=== PATIENT | female | born 1960 | race Caucasian/White ===

== ENCOUNTER → 2017-09-25 | Outpatient (CLI) | payer MEDICARE, MEDICAID ==
[~2017-09-25] MED LIST: AC500T PO; HYDR1TAB PO; LISI10TA2 PO; LISI20TA PO; LORA10TA7 PO
--- NOTE | 2017-09-25 11:29 | Diagnostic Imaging Report ---
INDICATION: Routine screening. COMPARISON: 07/15/2014 and 02/03/2013. TECHNIQUE: Screening digital mammography was performed bilaterally with a Computer Aided Detection (CAD) system. FINDINGS: Moderate density is noted bilaterally. The parenchymal pattern is stable. The bilateral breast nodules appear stable, consistent with benign etiologies. No spiculated mass or malignant appearing microcalcifications are seen. The axillae are unremarkable. IMPRESSION: No mammographic features suspicious for malignancy are identified. ACR BI-RADS Category 2: Benign findings. Result letter will be mailed to the patient. Note: At least 10% of breast cancer is not imaged by mammography. Dictated by: Dictated on workstation # [id number]
== END ==
LOC: RAD 08:05
PROVIDERS: ATTEND Family Medicine
DX: Z12.31 Encounter for screening mammogram for malignant neoplasm of breast (principal)
CPT/HCPCS: 77067

== ENCOUNTER 2018-05-09 15:52 | Outpatient (CLI) | payer MEDICARE, MEDICAID ==
[~2018-05-09] VITALS: Ht 157.5 cm; Wt 83.9 kg
== END 2018-05-09 16:06 | disposition home or self-care (01) ==
LOC: PREOP 15:52
PROVIDERS: ATTEND Surgery
DX: Z01.818 Encounter for other preprocedural examination (principal)

== ENCOUNTER 2018-05-13 08:06 | Day surgery (SDC) | payer MEDICARE, MEDICAID ==
[~2018-05-13] VITALS: Ht 157.5 cm; Wt 83.9 kg
[2018-05-13] MEDS ORDERED: LACTATED RINGERS 1,000 ML IV STA (08:17)
[2018-05-13 08:29] VITALS: BP 165/82
--- OUTSIDE RECORDS SUMMARY | 2018-05-13 08:37 | XMS REPORT ---
Author Author LUISA SARMIENTO [facility] Address [address] [place] [address] Phone Unavailable Care Team Providers Care Fuel Agent Name Role Phone LUISA SARMIENTO Unavailable Unavailable PROBLEMS Unknown Problems ALLERGIES No Known Allergies ENCOUNTERS Encounter Location Date Diagnosis [facility] [id number] [place] [address] [phone] Apr, Dental examination Z01.20 [facility] [address] [id number] Dec, Dental examination Z01.20 [facility] [address] [id number] Sep, Dental examination Z01.20 [facility] [id number] [place] [address] [phone] Sep, Encounter for dental exam and cleaning w/o abnormal findings Z01.20 [facility] [id number] [place] [address] [phone] May, Encounter for dental examination and cleaning without abnormal findings Z01.20 [facility] [id number] [place] [address] [phone] Jan, [facility] for dental examination and cleaning without abnormal findings [facility] [address] [id number] [phone] Jan, Dental examination Z01.20 [facility] [id number] [place] [address] [phone] Oct, Encounter for dental examination and cleaning without abnormal findings Z01.20 [facility] [address] [facility] [id number] [place] [address] [id number] Aug, Encounter for dental examination and cleaning without abnormal findings [facility]01.[facility] [address] [id number] [phone] Aug, Dental examination Z01.20 [facility] [address] [id number] [place] [phone] Apr, Encounter for dental examination and cleaning without abnormal findings [facility] [address] [id number] [place] [phone] Dec, Dental examination Z01.20 [facility] [address] [facility] [id number][place] [phone] Dec, Encounter for dental examination and cleaning with abnormal findings Z01.21 [facility] [address] [facility] [id number], [place] [phone] Mar, Dental examination V72.2 [facility] [address] [facility] [id number], [place] [address] Apr, IMMUNIZATIONS No Known Immunizations SOCIAL HISTORY Never Assessed REASON FOR VISIT PLAN OF CARE Activity Details Follow Up prn Reason: VITAL SIGNS MEDICATIONS Medication Instructions Dosage Frequency Start Date End Date Duration Status Lotrisone 1-0.05 % Externally Twice a day 1 application to affected area 12h Not-Taking ibuprofen 1 tab Active Lisinopril 10 MG Orally Once a day 1 tablet 24h Active Clotrimazole Active Zofran 4 MG Orally Once a day 2 tablets 24h Not-Taking Loratadine 10 MG Orally Once a day 1 tablet 24h Active Acetaminophen 325 MG Orally every 6 hrs 2 tablets as needed 6h Active Claritin 10 MG Orally Once a day 1 tablet 24h Not-Taking RESULTS No Results PROCEDURES Procedure Date Ordered Result Body Site PROPHYLAXIS - ADULT December 18, 2017 TOPICAL FLUORIDE VARNISH December 18, 2017 INSTRUCTIONS MEDICATIONS ADMINISTERED No Known Medications
--- OUTSIDE RECORDS SUMMARY | 2018-05-13 08:37 | XMS REPORT ---
Author Author [facility]ORRES [facility] Address [address] [place] [address] Care Team Providers Care Global Compensation Manager Name Role Phone MARANDA TORRES Unavailable PROBLEMS Unknown Problems ALLERGIES Unknown Allergies SOCIAL HISTORY No smoking Hx information available PLAN OF CARE VITAL SIGNS MEDICATIONS Medication Instructions Dosage Frequency Start Date End Date Duration Status Lisinopril 10 MG Orally Once a day 1 tablet 24h Active Claritin 10 MG Orally Once a day 1 tablet 24h Active Loratadine 10 MG Orally Once a day 1 tablet 24h Active Acetaminophen 325 MG Orally every 6 hrs 2 tablets as needed 6h Active RESULTS No Results PROCEDURES Procedure Date Ordered Related Diagnosis Body Site PERIODIC ORAL EXAMINATION Aug 08, 2016 BITEWINGS - FOUR FILMS Aug 08, 2016 IMMUNIZATIONS No Known Immunizations
--- OUTSIDE RECORDS SUMMARY | 2018-05-13 08:37 | XMS REPORT ---
Author Author LUISA SARMIENTO [facility] Address [address] [place] [address] Phone Unavailable Care Team Providers Care Continuing Education Specialist Name Role Phone LUISA SARMIENTO Unavailable Unavailable PROBLEMS Unknown Problems ALLERGIES No Known Allergies ENCOUNTERS Encounter Location Date Diagnosis [facility] [id number] [place] [address] [phone] Dec, Dental examination Z01.20 [facility] [address] [phone] Sep, Dental examination Z01.20 [facility] [id number] [place] [address] [phone] Sep, Encounter for dental exam and cleaning w/o abnormal findings Z01.20 [facility] [id number] [place] [address] [phone] May, Encounter for dental examination and cleaning without abnormal findings Z01.20 [facility] [address] [id number] [place] [address] [phone] Jan, Encounter for dental examination and cleaning without abnormal findings [facility]01.20 [facility] [address] [facility] [address] [address] [id number] [phone] Jan, Dental examination Z01.20 [facility] [id number] [place] [address] [phone] Oct, Encounter for dental examination and cleaning without abnormal findings Z01.20 [facility] [address] [id number] [place] [address] [phone] Aug, Encounter for dental examination and cleaning without abnormal findings Z01.20 [facility] [address] [id number] [phone] Aug, Dental examination Z01.20 [facility] [id number] [place] [address] [phone] Apr, Encounter for dental examination and cleaning without abnormal findings Z01.20 [facility] [address] [id number] [place] [phone] Dec, Dental examination Z01.20 [facility] [address] [facility] [id number] [place] [phone] Dec, Encounter for dental examination and cleaning with abnormal findings Z01.21 [facility] [address] [facility] [id number] [place] [phone] Mar, Dental examination V72.2 [facility] [address] [facility] [id number] [place] [address] Apr, IMMUNIZATIONS No Known Immunizations SOCIAL HISTORY Never Assessed REASON FOR VISIT ADULT OUTREACH CLASS [facility] PLAN OF CARE Activity Details Follow Up 3 Months Reason:ON SITE RECALL VITAL SIGNS MEDICATIONS Medication Instructions Dosage Frequency Start Date End Date Duration Status Lotrisone 1-0.05 % Externally Twice a day 1 application to affected area 12h Unknown Zofran 4 MG Orally Once a day 2 tablets 24h Unknown Claritin 10 MG Orally Once a day 1 tablet 24h Unknown Loratadine 10 MG Orally Once a day 1 tablet 24h Unknown Lisinopril 10 MG Orally Once a day 1 tablet 24h Unknown ibuprofen 1 tab Unknown Acetaminophen 325 MG Orally every 6 hrs 2 tablets as needed 6h Unknown RESULTS No Results PROCEDURES Procedure Date Ordered Result Body Site PROPHYLAXIS - ADULT Sep 04, 2017 TOPICAL FLUORIDE VARNISH Sep 04, 2017 INSTRUCTIONS MEDICATIONS ADMINISTERED No Known Medications
--- OUTSIDE RECORDS SUMMARY | 2018-05-13 08:37 | XMS REPORT ---
Author Author MARANDA TORRES Organization [employer] Address Unknown Phone Unavailable Care Team Providers Care Crm Analyst Name Role Phone MARANDA TORRES CP Unavailable Allergies No Known Allergies Problems Problem Type Condition Code Onset Dates Condition Status Assessment Dental examination Z01.20 Active Medications No Known Medications Procedures Procedure Coding System Code Date INTRAORL-PERIAPICAL 1 FILM 13009 CPT-4 D0220 December 28, 2015 INTRAORL-PERIAPICAL EA ADD FILM CPT-4 D0230 December 28, 2015 COMP ORAL EVALUATION - NEW/EST PT CPT-4 D0150 December 28, 2015 INTRAORL-PERIAPICAL EA ADD FILM CPT-4 D0230 December 28, 2015 INTRAORL-PERIAPICAL EA ADD FILM CPT-4 D0230 December 28, 2015 INTRAORL-PERIAPICAL EA ADD FILM CPT-4 D0230 December 28, 2015 Results No Known Results Summary Purpose eClinicalWorks Submission
--- OUTSIDE RECORDS SUMMARY | 2018-05-13 08:37 | XMS REPORT ---
Author Author MARANDA TORRES Organization [facility] Address [address] [place] [address] Care Team Providers Care Vending Route Driver Name Role Phone MARANDA TORRES Unavailable PROBLEMS Unknown Problems ALLERGIES No Known Allergies ENCOUNTERS Encounter Location Date Diagnosis [facility] [id number] [place] [phone] Dec, [facility] [id number] [place] [address] [phone] Sep, Dental examination Z01.[address] [facility] [id number] [place] [address] [phone] Sep, Encounter for dental exam and cleaning w/o abnormal findings Z01.[address] [facility] [address] [id number] [place] [address] [phone] May, Encounter for dental examination and cleaning without abnormal findings Z01.[address] [facility] [address] [id number] [place] [address] [phone] Jan, Encounter for dental examination and cleaning without abnormal findings Z01.20 [facility] [address] [facility] [address] [id number] [place] [phone] Jan, Dental examination Z01.[address] [facility] [address] [id number] [place] [address] [phone] Oct, Encounter for dental examination and cleaning without abnormal findings Z01.[address] [facility] [id number] [place] [address] [phone] Aug, Encounter for dental examination and cleaning without abnormal findings Z01.20 [facility] [address] [facility] [id number] [place] [phone] Aug, Dental examination Z01.[address] [facility] [address] [facility] [id number] [place] [phone] Apr, Encounter for dental examination and cleaning without abnormal findings Z01.20 [facility] [address] [id number] [place] [phone] Dec, Dental examination Z01.[address] [facility] [address] [facility] [id number][place] [phone] Dec, Encounter for dental examination and cleaning with abnormal findings Z01.[address] [facility] [address] [facility] [id number] [place] [phone] Mar, Dental examination V72.2 [facility] [address] [facility] [id number], [place] [address] Apr, IMMUNIZATIONS No Known Immunizations SOCIAL HISTORY Never Assessed REASON FOR VISIT PLAN OF CARE Activity Details Follow Up prn Reason:Recall VITAL SIGNS MEDICATIONS Medication Instructions Dosage Frequency Start Date End Date Duration Status Claritin 10 MG Orally Once a day 1 tablet 24h Active Loratadine 10 MG Orally Once a day 1 tablet 24h Active Zofran 4 MG Orally Once a day 2 tablets 24h Active Lotrisone 1-0.05 % Externally Twice a day 1 application to affected area 12h Active ibuprofen 1 tab Active Lisinopril 10 MG Orally Once a day 1 tablet 24h Active Acetaminophen 325 MG Orally every 6 hrs 2 tablets as needed 6h Active RESULTS No Results PROCEDURES Procedure Date Ordered Result Body Site PERIODIC ORAL EXAMINATION February 26, 2017 INTRAORL-PERIAPICAL 1 FILM 64963 February 26, 2017 INTRAORL-PERIAPICAL EA ADD FILM February 26, 2017 INTRAORL-PERIAPICAL EA ADD FILM February 26, 2017 INTRAORL-PERIAPICAL EA ADD FILM February 26, 2017 INTRAORL-PERIAPICAL EA ADD FILM February 26, 2017 INSTRUCTIONS MEDICATIONS ADMINISTERED No Known Medications
--- OUTSIDE RECORDS SUMMARY | 2018-05-13 08:37 | XMS REPORT ---
Author Author LUISA SARMIENTO [facility] Address [address] [place] [address] Phone Unavailable Care Team Providers Care Evp Sales Name Role Phone LUISA SARMIENTO Unavailable Unavailable PROBLEMS Unknown Problems ALLERGIES No Known Allergies ENCOUNTERS Encounter Location Date Diagnosis [facility] [id number] [place] [address] [phone] Dec, Dental examination Z01.20 [facility] [address] [phone] Sep, Dental examination Z01.20 [facility] [address] [phone] Sep, Encounter for dental exam and cleaning w/o abnormal findings Z01.20 [facility] [id number] [place] [address] [phone] May, Encounter for dental examination and cleaning without abnormal findings Z01.20 [facility] [address] [id number] [phone] Jan, Dental examination Z01.20 [facility] [id number] [place] [address] [phone] Jan, Encounter for dental examination and cleaning without abnormal findings Z01.20 [facility] [id number] [place] [address] [id number] Oct, Encounter for dental examination and cleaning without abnormal findings Z01.20 [facility] [address] [id number] [place] [address] [phone] Aug, Encounter for dental examination and cleaning without abnormal findings [facility]01.20 [facility] [address] [id number] [phone] Aug, Dental examination Z01.20 [facility] [id number] [place] [address] [id number] Apr, Encounter for dental examination and cleaning without abnormal findings Z01.20 [facility] [address] [id number] [place] [phone] Dec, Dental examination Z01.20 [facility] [address] [facility] [id number] [place] [phone] Dec, Encounter for dental examination and cleaning with abnormal findings Z01.21 [facility] [address] [facility] [id number] [place] [phone] Mar, Dental examination V72.2 [facility] [address] [facility] [id number] [place] [address] Apr, IMMUNIZATIONS No Known Immunizations SOCIAL HISTORY Never Assessed REASON FOR VISIT ADULT OUTREACH CLASS [facility] PLAN OF CARE Activity Details Follow Up 3 Months Reason:ON SITE RECALL VITAL SIGNS MEDICATIONS Medication Instructions Dosage Frequency Start Date End Date Duration Status Lotrisone 1-0.05 % Externally Twice a day 1 application to affected area 12h Active Zofran 4 MG Orally Once a day 2 tablets 24h Active Acetaminophen 325 MG Orally every 6 hrs 2 tablets as needed 6h Active Lisinopril 10 MG Orally Once a day 1 tablet 24h Active Loratadine 10 MG Orally Once a day 1 tablet 24h Active Claritin 10 MG Orally Once a day 1 tablet 24h Active ibuprofen 1 tab Active RESULTS No Results PROCEDURES Procedure Date Ordered Result Body Site PROPHYLAXIS - ADULT May 08, 2017 TOPICAL FLUORIDE VARNISH May 08, 2017 INSTRUCTIONS MEDICATIONS ADMINISTERED No Known Medications
--- OUTSIDE RECORDS SUMMARY | 2018-05-13 08:37 | XMS REPORT ---
Author Author nicolleRADHAMES Bejarano Organization [facility] Address [address] [place] [address] Care Team Providers Care Executive Director Of Marketing Name Role Phone RADHAMES Zaidi Unavailable PROBLEMS Unknown Problems ALLERGIES No Known Allergies ENCOUNTERS Encounter Location Date Diagnosis [facility] [id number] [place] [address] [phone] Dec, Dental examination Z01.20 [facility] [id number] [place] [address] [phone] Sep, Dental examination Z01.20 [facility] [address] [phone] Sep, Encounter for dental exam and cleaning w/o abnormal findings Z01.20 [facility] [id number] [place] [address] [phone] May, Encounter for dental examination and cleaning without abnormal findings Z01.20 [facility] [address] [id number] [phone] Jan, Dental examination Z01.20 [facility] [id number] [place] [address] [phone] Jan, Encounter for dental examination and cleaning without abnormal findings Z01.20 [facility] [id number] [place] [address] [phone] Oct, Encounter for dental examination and cleaning without abnormal findings Z01.20 [facility] [id number] [place] [address] [phone] Aug, Encounter for dental examination and cleaning without abnormal findings [facility]01.[address] [facility] [address] [id number], [place] [phone] Aug, Dental examination Z01.20 [facility] [address] [id number] [place] [phone] Apr, Encounter for dental examination and cleaning without abnormal findings Z01.20 [facility] [address] [id number] [place] [phone] Dec, Dental examination Z01.20 [facility] [address] [id number] [place] [phone] Dec, Encounter for dental examination and cleaning with abnormal findings Z01.21 [facility] [address] [id number] [place] [phone] Mar, Dental examination V72.2 [facility] [address] [facility] [id number] [place] [address] Apr, IMMUNIZATIONS No Known Immunizations SOCIAL HISTORY Never Assessed REASON FOR VISIT PLAN OF CARE Activity Details Follow Up prn Reason: VITAL SIGNS MEDICATIONS Medication Instructions Dosage Frequency Start Date End Date Duration Status Lotrisone 1-0.05 % Externally Twice a day 1 application to affected area 12h Active ibuprofen 1 tab Active Acetaminophen 325 MG Orally every 6 hrs 2 tablets as needed 6h Active Claritin 10 MG Orally Once a day 1 tablet 24h Active Lisinopril 10 MG Orally Once a day 1 tablet 24h Active Loratadine 10 MG Orally Once a day 1 tablet 24h Active Zofran 4 MG Orally Once a day 2 tablets 24h Active RESULTS No Results PROCEDURES Procedure Date Ordered Result Body Site PERIODIC ORAL EXAMINATION Sep 04, 2017 INTRAORL-PERIAPICAL 1 FILM 02044 Sep 04, 2017 INTRAORL-PERIAPICAL 1 FILM 26973 Sep 04, 2017 INTRAORL-PERIAPICAL 1 FILM 70491 Sep 04, 2017 INTRAORL-PERIAPICAL 1 FILM 98202 Sep 04, 2017 INTRAORL-PERIAPICAL 1 FILM 63068 Sep 04, 2017 INSTRUCTIONS MEDICATIONS ADMINISTERED No Known Medications
--- OUTSIDE RECORDS SUMMARY | 2018-05-13 08:37 | XMS REPORT ---
Author Author LUISA SARMIENTO [facility] Address [address] [place] [address] Phone Unavailable Care Team Providers Care Timber Grader Name Role Phone LUISA SARMIENTO Unavailable Unavailable PROBLEMS Unknown Problems ALLERGIES No Known Allergies SOCIAL HISTORY Never Assessed PLAN OF CARE VITAL SIGNS MEDICATIONS Medication Instructions Dosage Frequency Start Date End Date Duration Status Acetaminophen 325 MG Orally every 6 hrs 2 tablets as needed 6h Active Lotrisone 1-0.05 % Externally Twice a day 1 application to affected area 12h Active Loratadine 10 MG Orally Once a day 1 tablet 24h Active Claritin 10 MG Orally Once a day 1 tablet 24h Active Zofran 4 MG Orally Once a day 2 tablets 24h Active Lisinopril 10 MG Orally Once a day 1 tablet 24h Active ibuprofen 1 tab Active RESULTS No Results PROCEDURES Procedure Date Ordered Result Body Site PROPHYLAXIS - ADULT November 06, 2016 TOPICAL FLUORIDE VARNISH November 06, 2016 IMMUNIZATIONS No Known Immunizations
--- OUTSIDE RECORDS SUMMARY | 2018-05-13 08:37 | XMS REPORT ---
Author Author WEI ASENCIO [facility] eClinical[employer] Address Unknown Phone Unavailable Care Team Providers Care Telecommunication Systems Designer Name Role Phone WEI ASENCIO Unavailable Allergies No Known Allergies Problems Problem Type Condition ICD-9 Code Onset Dates Condition Status Assessment Dental examination V72.2 Active Medications No Known Medications Procedures Procedure Coding System Code Date Periodontal maint procedures CPT-4 D4910 March 30, 2015 Results No Known Results Summary Purpose eClinicalWorks Submission
--- OUTSIDE RECORDS SUMMARY | 2018-05-13 08:38 | XMS REPORT ---
Author LUISA Davis Organization [employer] Address Unknown Phone Unavailable Care Team Providers Care Sales And Production Manager Name Role Phone LUISA SARMIENTO CP Unavailable Allergies, Adverse Reactions, Alerts Substance Reaction Event Type N.K.D.A. Info Not Available Non Drug Allergy Problems Problem Type Condition Code Onset Dates Condition Status Assessment Encounter for dental examination and cleaning without abnormal findings Z01.20 Active Medications Medication Code System Code Instructions Start Date End Date Status Dosage Acetaminophen [facility] [address]-68 325 MG Orally every 6 hrs 2 tablets as needed Lisinopril [facility] [address]-06 10 MG Orally Once a day [address] tablet [address] [facility] [address]-80 10 MG Orally Once a day 1 tablet Loratadine [facility] [address]-03 10 MG Orally Once a day 1 tablet Procedures Procedure Coding System Code Date TOPICAL FLUORIDE VARNISH CPT-4 D1206 Apr 18, 2016 PROPHYLAXIS - ADULT CPT-4 D1110 Apr 18, 2016 Results No Known Results Summary Purpose eClinicalWorks Submission
--- OUTSIDE RECORDS SUMMARY | 2018-05-13 08:38 | XMS REPORT | Continuity of Care Document ---
Author Author [facility] Organization [facility] Address Unknown Phone Unavailable Allergies Active Description Code Type Severity Reaction Onset Reported/Identified Relationship to Patient Clinical Status Yes No Known Drug Allergies [id number] Drug Allergy Mild N/A 12/10/2009 Medications There is no data. Problems Date Dx Coded Attending Type Code Diagnosis Diagnosed By 05/12/2010 Ot 831.01 05/12/2010 Ot 959.2 05/12/2010 Ot E000.8 05/12/2010 Ot E849.3 05/12/2010 Ot E885.9 04/16/2011 Ot 521.00 04/16/2011 Ot 523.40 07/16/2014 Ot V76.12 07/16/2014 Ot 462 07/16/2014 Ot 831.01 07/16/2014 Ot E000.0 07/16/2014 Ot E000.8 07/16/2014 Ot E849.8 07/16/2014 Ot E888.9 07/16/2014 Ot V76.12 07/16/2014 Ot 521.00 07/16/2014 Ot V72.81 07/16/2014 Ot V74.8 07/16/2014 Ot V76.12 07/16/2014 AISHWARYA BUTLER DO Ot V76.12 07/16/2014 Ot V76.12 07/16/2014 Ot 462 07/16/2014 Ot 831.01 07/16/2014 Ot E000.0 07/16/2014 Ot E000.8 07/16/2014 Ot E849.8 07/16/2014 Ot E888.9 07/16/2014 Ot V76.12 07/16/2014 Ot 521.00 07/16/2014 Ot V72.81 07/16/2014 Ot V74.8 07/16/2014 Ot V76.12 07/16/2014 AISHWARYA BUTLER DO Ot V76.12 07/16/2014 CRISTINE COLINDRES MD Ot 319 07/16/2014 JENS JACKSON, CRISTINE Andreas Ot 812.03 07/16/2014 JENS JACKSON, CRISTINE Johns Ot 831.01 07/16/2014 JENS JACKSON, CRISTINE Johns Ot 955.0 07/16/2014 JENS JACKSON, CRISTINE Johns Ot 959.2 07/16/2014 JENS JACKSON, CRISTINE Johns Ot E000.8 07/16/2014 JENS JACKSON, CRISTINE Johns Ot E849.0 07/16/2014 JENS JACKSON, CRISTINE Johns Ot E888.9 08/05/2014 AISHWARYA BUTLER DO Ot V76.12 09/06/2014 JOANNA JACKSON, SOBIA Jerry Ot V57.1 09/06/2014 JOANNA JACKSON, SOBIA T Ot V58.9 09/10/2014 JOANNA JACKSON, SOBIA T Ot V57.1 09/10/2014 JOANNA JACKSON, SOBIA T Ot V58.9 09/10/2014 JOANNA JACKSON, SOBIA T Ot V57.1 09/10/2014 JOANNA JACKSON, SOBIA T Ot V58.9 09/10/2014 AISHWARYA BUTLER DO Ot V76.12 10/02/2014 JOANNA JACKSON, SOBIA T Ot V57.1 10/02/2014 JOANNA JACKSON, SOBIA T Ot V58.9 10/05/2014 JOANNA JACKSON, SBOIA T Ot V57.1 10/05/2014 JOANNA JACKSON, SOBIA T Ot V58.9 10/05/2014 JOANNA JACKSON, SOBIA T Ot V57.1 10/05/2014 JOANNA JACKSON, SOBIA T Ot V58.9 10/11/2014 JOANNA JACKSON, SOBIA T Ot V57.1 10/11/2014 JOANNA JACKSON, SOBIA T Ot V58.9 10/12/2014 JOANNA JACKSON, SOBIA T Ot V57.1 10/12/2014 JOANNA JACKSON, SOBIA T Ot V58.9 08/27/2016 ORACIO JACKSON, SHAKIRA Trivedi Ot F79 UNSPECIFIED INTELLECTUAL DISABILITIES 08/27/2016 ORACIO JACKSON, SHAKIRA Trivedi Ot R07.9 CHEST PAIN, UNSPECIFIED 08/27/2016 ORACIO JACKSON, SHAKIRA Trivedi Ot Z79.899 OTHER SKILLED NURSING (CURRENT) DRUG THERAPY 08/29/2016 ORACIO JACKSON, SHAKIRA Trivedi Ot F79 UNSPECIFIED INTELLECTUAL DISABILITIES 08/29/2016 SHAKIRA NARAYANAN MD Ot R07.9 CHEST PAIN, UNSPECIFIED 08/29/2016 SHAKIRA NARAYANAN MD Ot 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 Results Test Result Range Complete blood count (CBC) with automated white blood cell (WBC) differential - 08/27/16 20:19 Blood leukocytes automated count (number/volume) 10.9 10*3/uL 4.3-11.0 Blood erythrocytes automated count (number/volume) 5.07 10*6/uL 4.35-5.85 Venous blood hemoglobin measurement (mass/volume) 14.1 g/dL 11.5-16.0 Blood hematocrit (volume fraction) 43 % 35-52 Automated erythrocyte mean corpuscular volume 84 [foz_us] 80-99 Automated erythrocyte mean corpuscular hemoglobin (mass per erythrocyte) 28 pg 25-34 Automated erythrocyte mean corpuscular hemoglobin concentration measurement ( mass/volume) 33 g/dL 32-36 Automated erythrocyte distribution width ratio 15.1 % 10.0-14.5 Automated blood platelet count (count/volume) 249 10*3/uL 130-400 Automated blood platelet mean volume measurement TNP 7.4 -10.4 Automated blood neutrophils/100 leukocytes 62 % 42-75 Automated blood lymphocytes/100 leukocytes 26 % 12-44 Blood monocytes/100 leukocytes 8 % 0-12 Automated blood eosinophils/100 leukocytes 3 % 0-10 Automated blood basophils/100 leukocytes 1 % 0-10 Blood neutrophils automated count (number/volume) 6.8 10*3 1.8-7.8 Blood lymphocytes automated count (number/volume) 2.9 10*3 1.0-4.0 Blood monocytes automated count (number/volume) 0.9 10*3 0.0-1.0 Automated eosinophil count 0.4 10*3/uL 0.0-0.3 Automated blood basophil count (count/volume) 0.1 10*3/uL 0.0-0.1 Automated dipstick urinalysis - 08/27/16 20:19 Urine color determination YELLOW NRG Urine clarity determination CLOUDY NRG Urine pH measurement by test strip 5 5-9 Specific gravity of urine by test strip 1.030 1.016- 1.022 Urine protein assay by test strip, semi-quantitative 2+ NEGATIVE Urine glucose detection by automated test strip NEGATIVE NEGATIVE Erythrocytes detection in urine sediment by light microscopy 2+ NEGATIVE Urine ketones detection by automated test strip NEGATIVE NEGATIVE Urine nitrite detection by test strip NEGATIVE NEGATIVE Urine total bilirubin detection by test strip NEGATIVE NEGATIVE Urine urobilinogen measurement by automated test strip (mass/volume) 1 mg/dL NORMAL Urine leukocyte esterase detection by dipstick 3+ NEGATIVE Bacterial urine culture - 08/27/16 20:19 Bacterial urine culture [id number] NRG COLONY COUNT 10,000/ML - 100,000/ML NRG FREE TEXT ENTRY 3 MIXED GRAM POSITIVE REYM NRG Complete blood count (CBC) with automated white blood cell (WBC) differential - 08/27/16 21:06 Blood leukocytes automated count (number/volume) 9.9 10*3/uL 4.3-11.0 Blood erythrocytes automated count (number/volume) 4.87 10*6/uL 4.35-5.85 Venous blood hemoglobin measurement (mass/volume) 13.5 g/dL 11.5-16.0 Blood hematocrit (volume fraction) 41 % 35-52 Automated erythrocyte mean corpuscular volume 85 [foz_us] 80-99 Automated erythrocyte mean corpuscular hemoglobin (mass per erythrocyte) 28 pg 25-34 Automated erythrocyte mean corpuscular hemoglobin concentration measurement ( mass/volume) 33 g/dL 32-36 Automated erythrocyte distribution width ratio 14.4 % 10.0-14.5 Automated blood platelet count (count/volume) 291 10*3/uL 130-400 Automated blood platelet mean volume measurement 11.6 [foz_us] 7.4-10.4 Automated blood neutrophils/100 leukocytes 68 % 42-75 Automated blood lymphocytes/100 leukocytes 23 % 12-44 Blood monocytes/100 leukocytes 8 % 0-12 Automated blood eosinophils/100 leukocytes 1 % 0-10 Automated blood basophils/100 leukocytes 0 % 0-10 Blood neutrophils automated count (number/volume) 6.7 10*3 1.8-7.8 Blood lymphocytes automated count (number/volume) 2.3 10*3 1.0-4.0 Blood monocytes automated count (number/volume) 0.8 10*3 0.0-1.0 Automated eosinophil count 0.1 10*3/uL 0.0-0.3 Automated blood basophil count (count/volume) 0.0 10*3/uL 0.0-0.1 Fibrin D-dimer FEU measurement in platelet poor plasma (mass/volume) - 21:06 Fibrin D-dimer FEU measurement in platelet poor plasma (mass/volume) 1.02 ug/mL 0.00-0.49 PT panel in platelet poor plasma by coagulation assay - 08/27/16 21:06 Prothrombin time (PT) in platelet poor plasma by coagulation assay 12.6 s 12.2-14.7 INR in platelet poor plasma or blood by coagulation assay 1.0 0.8-1.4 Activated partial thromboplastin time (aPTT) in platelet poor plasma bycoagulation assay - 08/27/16 21:06 Activated partial thromboplastin time (aPTT) in platelet poor plasma bycoagulation assay 26 s 24-35 Comprehensive metabolic panel - 08/27/16 21:06 Serum or plasma sodium measurement (moles/volume) 139 mmol/L 135-145 Serum or plasma potassium measurement (moles/volume) 4.3 mmol/L 3.6-5.0 Serum or plasma chloride measurement (moles/volume) 106 mmol/L 98-107 Carbon dioxide 21 mmol/L 21-32 Serum or plasma anion gap determination (moles/volume) 12 mmol/L 5-14 Serum or plasma urea nitrogen measurement (mass/volume) 22 mg/dL 7-18 Serum or plasma creatinine measurement (mass/volume) 1.14 mg/dL 0.60-1.30 Serum or plasma urea nitrogen/creatinine mass ratio 19 NRG Serum or plasma creatinine measurement with calculation of estimated glomerular filtration rate 49 NRG Serum or plasma glucose measurement (mass/volume) 144 mg/dL 70-105 Serum or plasma calcium measurement (mass/volume) 8.9 mg/dL 8.5-10.1 Serum or plasma total bilirubin measurement (mass/volume) 0.2 mg/dL 0.1-1.0 Serum or plasma alkaline phosphatase measurement (enzymatic activity/volume) 133 U/L 40-136 Serum or plasma aspartate aminotransferase measurement (enzymatic activity/ volume) 22 U/L 5-34 Serum or plasma alanine aminotransferase measurement (enzymatic activity/volume ) 25 U/L 0-55 Serum or plasma protein measurement (mass/volume) 6.8 g/dL 6.4-8.2 Serum or plasma albumin measurement (mass/volume) 3.9 g/dL 3.2-4.5 Magnesium - 08/27/16 21:06 Magnesium 2.4 mg/dL 1.8-2.4 Serum or plasma troponin i.cardiac measurement (mass/volume) - 08/27/16 21:06 Serum or plasma troponin i.cardiac measurement (mass/volume) < ng/ mL <0.30 Myoglobin, serum - 08/27/16 21:06 Myoglobin, serum 32.8 ng/mL 10.0-92.0 Lipase - 08/27/16 21:06 Lipase 58 U/L 8-78 Encounters ACCT No. Visit Date/Time Discharge Status Pt. Type Provider Facility Loc./Unit Complaint [id number] 09/25/2017 08:05:00 09/25/2017 23:59:59 CLS Outpatient AISHWARYA BUTLER DO [facility] RAD YEARLY EXAM [id number] 07/15/2017 14:25:00 07/15/2017 23:59:59 CLS Preadmit AISHWARYA BUTLER DO [facility] RAD SCREENING [id number] 08/27/2016 20:22:00 08/27/2016 23:23:00 DIS Emergency SHAKIRA NARAYANAN MD [facility] ER CP/SOA [id number] 10/07/2014 08:47:00 10/07/2014 09:36:00 DIS Outpatient SOBIA MARSHALL MD [facility] REHAB [id number] 07/16/2014 10:26:00 07/16/2014 18:54:00 DIS Emergency CRISTINE COLINDRES MD [facility] ER [id number] 07/15/2014 13:16:00 07/15/2014 23:59:59 CLS Outpatient AISHWARYA BUTLER DO [facility] RAD [id number] 02/03/2013 14:38:00 02/03/2013 23:59:59 [facility] Outpatient AISHWARYA BUTLER DO [facility] [id number] 04/23/2018 12:06:00 Document Registration [id number] 07/16/2014 10:26:00 Document Registration [id number] 07/16/2014 10:26:00 Document Registration [id number] 09/21/2011 14:48:00 Document Registration [id number] 04/16/2011 06:25:00 Document Registration [id number] 04/10/2011 10:06:00 Document Registration [id number] 08/24/2010 10:49:00 Document Registration [id number] 05/12/2010 13:19:00 Document Registration [id number] 05/12/2010 12:27:00 Document Registration [id number] 12/10/2009 22:39:00 Document Registration [id number] 07/05/2009 08:18:00 Document Registration [id number] 10/09/2014 17:38:09 ACT Document Registration
--- OUTSIDE RECORDS SUMMARY | 2018-05-13 08:38 | XMS REPORT ---
Author Author LUISA SARMIENTO [facility] Address [address] [place] [address] Phone Unavailable Care Team Providers Care Foreign Legal Consultant Name Role Phone LUISA SARMIENTO Unavailable Unavailable PROBLEMS Unknown Problems ALLERGIES No Known Allergies ENCOUNTERS Encounter Location Date Diagnosis [facility] [id number] [place] [phone] Dec, [facility] [address] [phone] Sep, Dental examination Z01.20 [facility] [address] [id number] Sep, Encounter for dental exam and cleaning w/o abnormal findings Z01.20 [facility] [id number] [place] [phone] May, Encounter for dental examination and cleaning without abnormal findings Z01.20 [facility] [id number] [place] [phone] Jan, Encounter for dental examination and cleaning without abnormal findings [facility]01.20 [facility] [address] [id number] [phone] Jan, Dental examination Z01.20 [facility] [id number] [place] [id number] Oct, Encounter for dental examination and cleaning without abnormal findings Z01.20 [facility] [id number] [place] [address] [phone] Aug, Encounter for dental examination and cleaning without abnormal findings Z01.20 [facility] [address] [id number] [phone] Aug, Dental examination Z01.20 [facility] [id number] [place] [address] [phone] Apr, Encounter for dental examination and cleaning without abnormal findings Z01.20 [facility] [id number] [phone] Dec, Dental examination Z01.20 [facility] [address] [facility] [id number] [place] [phone] Dec, Encounter for dental examination and cleaning with abnormal findings Z01.21 [facility] [address] [facility] [id number] [phone] Mar, Dental examination V72.2 [facility] [address] [facility] [id number] [place] [phone] Apr, IMMUNIZATIONS No Known Immunizations SOCIAL HISTORY Never Assessed REASON FOR VISIT ADULT OUTREACH CLASS [facility] PLAN OF CARE VITAL SIGNS MEDICATIONS Medication Instructions Dosage Frequency Start Date End Date Duration Status Zofran 4 MG Orally Once a day 2 tablets 24h Active Lotrisone 1-0.05 % Externally Twice a day 1 application to affected area 12h Active Acetaminophen 325 MG Orally every 6 hrs 2 tablets as needed 6h Active ibuprofen 1 tab Active Lisinopril 10 MG Orally Once a day 1 tablet 24h Active Loratadine 10 MG Orally Once a day 1 tablet 24h Active Claritin 10 MG Orally Once a day 1 tablet 24h Active RESULTS No Results PROCEDURES Procedure Date Ordered Result Body Site PROPHYLAXIS - ADULT February 26, 2017 INSTRUCTIONS MEDICATIONS ADMINISTERED No Known Medications
[2018-05-13] MEDS ORDERED: PROPOFOL INJECTION 50 ML IV ONE ×2 (10:04→10:18)
--- NOTE | 2018-05-13 10:17 | Progress Note-Pre Operative ---
Pre-Operative Progress Note H&P Reviewed The H&P was reviewed, patient examined and no changes noted. Date Seen by Provider: May 13, 2018 Time Seen by Provider: : Date H&P Reviewed: May 13, 2018 Time H&P Reviewed: :17 Pre-Operative Diagnosis: screening colonoscopy TORIBIO CALLE DO May 13, 2018 10:17
--- NOTE | 2018-05-13 10:39 | Progress Note-Post Operative ---
Post-Operative Progess Note Surgeon (s)/Instructor Modeling (s) Surgeon TORIBIO CALLE DO Instructor Modeling: na Pre-Operative Diagnosis screening colonoscopy Post-Operative Diagnosis ascending colon polyp Procedure & Operative Findings Date of Procedure 05/13/18 Procedure Performed/Findings colonoscopy with snare polypectomy Anesthesia Type per revenue specialist Estimated Blood Loss Estimated blood loss (mL): none Specimens/Packing Specimens Removed ascending colon polyp TORIBIO CALLE DO May 13, 2018 10:39
--- NOTE | 2018-05-13 10:41 | Discharge Inst-Simple/Standard ---
Discharge Inst-Standard Patient Instructions/Follow Up Plan of Care/Instructions/FU: 2 weeks Nehal Activity as Tolerated: Yes Discharge Diet: Regular Diet TORIBIO CALLE DO May 13, 2018 10:41
[2018-05-13 10:50] VITALS: BP 143/76
[2018-05-13 11:20] VITALS: BP 156/93
[2018-05-13 11:32] VITALS: BP 156/93
--- NOTE | 2018-05-13 11:54 | Anesthesia-General Post-Op ---
MAC Patient Condition Mental Status/LOC: Same as Preop Cardiovascular: Satisfactory Nausea/Vomiting: Absent Respiratory: Satisfactory Pain: Controlled Complications: Absent Post Op Complications Complications None Follow Up Care/Instructions Patient Instructions None needed. Anesthesiology Discharge Order Discharge Order Patient is doing well, no complaints, stable vital signs, no apparent adverse anesthesia problems. No complications reported per nursing. DARLIN DENG CRNA May 13, 2018 11:54
--- NOTE | 2018-05-13 15:26 | OPERATIVE REPORT ---
DATE OF SERVICE: 05/13/2018 PREOPERATIVE DIAGNOSIS: Screening colonoscopy. POSTOPERATIVE DIAGNOSIS: Ascending colon polyp. PROCEDURE: Colonoscopy with snare polypectomy, ascending colon. SURGEON: Toribio Calvert DO ANESTHESIA: Per SUPERVISOR SEWER SYSTEM. ESTIMATED BLOOD LOSS: None. COMPLICATIONS: None. INDICATIONS: The patient is a 58-year-old female due for screening colonoscopy. She understands risks and benefits of procedure and wished to proceed with procedure. Consent was signed in the chart. PROCEDURE IN DETAIL: The patient was taken to the endoscopy suite, placed in left lateral recumbent position. Timeout was performed. Digital rectal exam was performed. There were no palpable polyps, masses or ulcerations. The scope was inserted into the rectum and advanced all the way to the cecum with minimal difficulty. Prep was adequate. Scope was then slowly retracted back. No polyps, masses or ulcerations within the cecum. Within the ascending colon, a small polyp was present, which snare polypectomy was performed. This was suctioned for pathology. Scope was then continuously retracted back. There were no other polyps, masses or ulcerations within the ascending, transverse, descending and sigmoid colon. Once in the rectum, scope was retroflexed noting no other pathology. Scope was returned to its normal position, slowly withdrawn until completely removed. The patient tolerated the procedure well without any complications. She was taken to the recovery room in stable condition. RECOMMENDATIONS: The patient will need repeat colonoscopy in 5 years. If she has any problems prior to that, she should be reevaluated at that time. The patient will follow up in the office in two weeks to discuss pathology results and see how she is doing. Job ID: [id number] DocumentID: [id number] Dictated Date: 05/13/2018 10:43:25 Fire Control Technician G Date: 05/13/2018 15:25:44 Dictated By: TORIBIO CALVERT DO
== END 2018-05-13 11:30 | disposition home or self-care (01) ==
LOC: ENDO 08:06
PROVIDERS: ATTEND Surgery
DX: Z12.11 Encounter for screening for malignant neoplasm of colon (principal); D12.2 Benign neoplasm of ascending colon; I10 Essential (primary) hypertension; F79 Unspecified intellectual disabilities; E66.9 Obesity, unspecified; Z68.33 Body mass index [BMI] 33.0-33.9, adult
CPT/HCPCS: 88305

== ENCOUNTER → 2018-12-08 | Outpatient (CLI) | payer MEDICARE, MEDICAID ==
--- NOTE | 2018-12-09 10:06 | Diagnostic Imaging Report ---
EXAMINATION: Digital mammogram bilateral screening with 3D tomosynthesis and CAD. INDICATION: Screening. COMPARISON: This study is compared to the prior exams of 09/25/2017, 07/15/2014, and 02/03/2013. PERSONAL HISTORY: At this time, there are no current complaints. FINDINGS: The fibroglandular tissue in both breasts is heterogeneously dense. This does limit the sensitivity of this exam. Overall, there does not appear to have been any significant change when compared to the prior study. No primary or secondary sign of malignancy is noted. IMPRESSION: There is no evidence for malignancy. ACR BI-RADS Category 1: Negative. Result letter will be mailed to the patient. Note: At least 10% of breast cancer is not imaged by mammography. Dictated by: Dictated on workstation # [id number]
== END ==
LOC: RAD 08:12
PROVIDERS: ATTEND Family Medicine
DX: Z12.31 Encounter for screening mammogram for malignant neoplasm of breast (principal)
CPT/HCPCS: 77067

== ENCOUNTER → 2020-12-22 | Outpatient (CLI) | payer MEDICARE, MEDICAID ==
[~2020-12-22] MED LIST changes: -LISI10TA2 PO; +LISI10TA25 PO
--- NOTE | 2020-12-23 12:00 | Diagnostic Imaging Report ---
INDICATION: Routine screening. Comparison is made with prior mammogram from 12/08/2018 and 09/25/2017. 2-D and 3-D bilateral screening mammography was performed with CAD. Scattered fibroglandular densities are identified bilaterally. Circumscribed nodules in both breasts appear to be stable and consistent with benign etiologies. No spiculated mass or malignant appearing microcalcifications are seen. Axillae are unremarkable. IMPRESSION: BI-RADS Category 2 No mammographic features suspicious for malignancy are identified. ACR BI-RADS Category 2: Benign findings. Result letter will be mailed to the patient. Note: At least 10% of breast cancer is not imaged by mammography. Dictated by: Dictated on workstation # [id number]
== END ==
LOC: RAD 14:54
PROVIDERS: ATTEND Family Medicine
DX: Z12.31 Encounter for screening mammogram for malignant neoplasm of breast (principal)
CPT/HCPCS: 77063; 77067

== ENCOUNTER → 2022-01-23 | Outpatient (CLI) | payer MEDICARE, MEDICAID ==
--- NOTE | 2022-01-23 15:03 | Diagnostic Imaging Report ---
Indication: Routine screening. Comparison is made with prior mammograms from 12/22/2020 and 12/08/2018. 2-D and 3-D bilateral screening mammography was performed with CAD. Scattered fibroglandular densities are identified bilaterally. Nodular densities in both breasts appear to be stable. No spiculated mass or malignant-appearing microcalcifications are seen. Axillae are unremarkable. IMPRESSION: BI-RADS Category 2 No mammographic features suspicious for malignancy are identified. ACR BI-RADS Category 2: Benign findings. Result letter will be mailed to the patient. Note: At least 10% of breast cancer is not imaged by mammography. Dictated by: Dictated on workstation # [id number]
== END ==
LOC: RAD 13:00
PROVIDERS: ATTEND Family Medicine
DX: Z12.31 Encounter for screening mammogram for malignant neoplasm of breast (principal)
CPT/HCPCS: 77063; 77067